=== PATIENT | female | born 1945 | race Caucasian/White ===

== ENCOUNTER 2016-11-12 16:45 | Emergency (ER) | payer MEDICARE, BC ==
[2016-11-12] MEDS ORDERED: fentaNYL 100 MCG/2 ML SDV IVPUSH ONE ×2 (16:50→16:56)
--- NOTE | 2016-11-12 16:56 | EDM.PDOC ---
ED HPI GENERAL MEDICAL PROBLEM - General Chief Complaint: Upper Extremity Injury/Pain Stated Complaint: [facility] Time Seen by Provider: 11/12/16 16:47 Source of Information: Reports: Patient, EMS History Limitations: Reports: No Limitations - History of Present Illness INITIAL COMMENTS - FREE TEXT/NARRATIVE: 71-year-old female presents to the ED with an acute injury to her left shoulder. She arrives per [facility] ambulance. She is camping in [place]. She reports she was coming out of her trailer which she believes has 2 or 3 steps down and she slipped on the bottom surface. She reached up to grab the door knob but wasn't sure that she actually grabbed it. She continued to fall. This resulted in severe sudden pain in her left shoulder. Had nearly 2 mg of Dilaudid en route to the hospital with minimal pain relief. No previous dislocation of her shoulders. She did not hit her head hard or lose consciousness. Denies any pain in her ribs. She has a history of hypertension and previous coronary disease requiring triple bypass and a pacemaker placement 2 years ago. Onset: Today Onset Date: 11/12/16 Onset Time: 16:00 Duration: Minutes: Location: Reports: Upper Extremity, Left (Left shoulder.) Quality: Reports: Ache, Throbbing, Other Severity: Severe (Severe pain with any movement of the left upper extremity) Improves with: Reports: None Worsens with: Reports: None Context: Reports: Other (Slipped and fell and likely had a whole of the doorknob or railing as she fell with her left hand.) Associated Symptoms: Denies: Confusion, Chest Pain, Cough, cough w sputum, Diaphoresis, Fever/Chills, Headaches, Loss of Appetite, Malaise, Nausea/Vomiting , Rash, Seizure, Shortness of Breath, Syncope, Weakness 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 (see below) Left Shoulder Pain Score (Numeric/FACES): 10 - Related Data Allergies Allergy/AdvReac Type Severity Reaction Status Date / Time No Known Allergies Allergy Verified 11/12/16 16:51 Home Meds: Home Meds Aspirin 81 mg PO DAILY 11/12/16 [History] Brimonidine Tartrate/Timolol [Combigan 0.2%-0.5% Eye Drops] 2 drop EYELF BID 09/24 [History] Brinzolamide [Azopt] 2 drop EYELF BID 11/12/16 [History] Latanoprost 2 drop EYELF DAILY 11/12/16 [History] Lisinopril 20 mg PO BID 11/12/16 [History] Lovastatin 40 mg PO DAILY 11/12/16 [History] [place]-3S/DHA/Epa/Fish Oil/D3 [Dry Eye [place] Benefits Liquid] 2 drop EYEBOTH BID 11/12/16 [History] Sodium Fluoride [Flura-Drops] 2 drop EYERT BID 11/12/16 [History] oxyCODONE HCl/Acetaminophen [Percocet 5-325 mg Tablet] 1 - 2 each PO Q4H PRN # 20 tablet 11/12/16 [Rx] Past Medical History Cardiovascular History: Reports: Bypass (Triple bypass surgery carried out 3 years ago.), High Cholesterol, Hypertension, [place], Pacemaker Musculoskeletal History: Reports: Osteoarthritis, Osteoporosis (Started Fosamax a few weeks ago.) Social & Family History - Living Situation & Occupation Occupation: Retired Review of Systems - Review of Systems Review Of Systems: See Below Constitutional: Reports: No Symptoms Eyes: Reports: Other Ears: Reports: No Symptoms (Has severe glaucoma and is on 4 different kinds of drops for this.) Nose: Reports: No Symptoms Mouth/Throat: Reports: No Symptoms Respiratory: Reports: Shortness of Breath, Cough (Occasional cough usually nonproductive). Denies: Wheezing, Pleuritic Chest Pain (On exertion.) Cardiovascular: Denies: Chest Pain, Edema, Irregular Heart Rate, Lightheadedness , Palpitations, Syncope, Other GI/Abdominal: Reports: No Symptoms Genitourinary: Reports: Other (Urinary frequency) Musculoskeletal: Reports: Joint Pain Skin: Reports: No Symptoms (Has osteoporosis and does have some hip and knee pain. Some pain in her lower back and neck at times) Neurological: Reports: No Symptoms Psychiatric: Reports: No Symptoms ED EXAM, GENERAL - Physical Exam Exam: See Below Exam Limited By: No Limitations General Appearance: Alert, Moderate Distress Eye Exam: Bilateral Eye: Normal Inspection Throat/Mouth: Normal Inspection, Normal Lips, Normal Teeth, Normal Oropharynx Head: Atraumatic, Normocephalic Neck: Normal Inspection, Supple, Non-Tender, Full Range of Motion. No: Lymphadenopathy (L), Lymphadenopathy (R) Respiratory/Chest: No Respiratory Distress, Lungs Clear, Normal Breath Sounds ( Air entry is mildly decreased in both bases.), No Accessory Muscle Use, Decreased Breath Sounds (Mildly decreased in both lower lung mayberry.) Cardiovascular: Normal Peripheral Pulses, Regular Rate, Rhythm, No Edema, No Gallop, No Murmur, No Rub, Other (Well-healed midline sternotomy incision) Peripheral Pulses: 1+: Posterior Tibial (L), Posterior Tibial (R), Dorsalis Pedis (L), Dorsalis Pedis (R) GI/Abdominal: Normal Bowel Sounds, Soft, Non-Tender, No Organomegaly, No Distention, Other (No previous abdominal surgery) Back Exam: Other (Mild kyphosis thoracic spine). No: CVA Tenderness (L), CVA Tenderness (R) Extremities: Normal Inspection, Normal Capillary Refill, Other ([place] try and attempt to move the shoulder causes severe pain. It is held in) Neurological: Alert ( abduction.), Oriented, CN II-XII Intact, Normal Cognition Psychiatric: Normal Affect, Other Skin Exam: Warm (In severe pain), Dry, Intact, Normal Color, No Rash ED TRAUMA EXTREMITY PROCEDURES - Joint Reduction Site: Shoulder (L) Sedation: Conscious Cedation Local Anesthesia - Bupivicaine (Marcaine): Other (Utilize a total of 3 mg of Versed and 100 g of fentanyl IV.) Pre-Procedure NV Status: Normal Post-Procedure NV Status: Normal Technique: Traction/Counter Traction Number of Attempts: 1 Post-Reduction Imaging: Completely Reduced, No Fracture Seen Joint Reduction Complications: No Joint Reduction Complication Description: Patient did develop apnea for a period of time and required an oral airway and Ambu bag ventilation for a period of 3 minutes to restore her O2 sats to normal. Chest drifted as low as 55 %. After this she required a mask at 12 L/m and after 3 or 4 minutes she drifted down to as low as 72%. She was therefore given Romazicon 0.2 mg IV bolus. This improved her O2 sats immediately and she has remained at 100% O2 sats. Course - Vital Signs Last Recorded V/S: Last Vital Signs Temp 35.5 C 11/12/16 16:49 Pulse 69 11/12/16 20:06 Resp 18 11/12/16 20:06 BP 122/81 11/12/16 20:06 Pulse Ox 99 11/12/16 20:06 - Orders/Labs/Meds Meds: Medications Discontinued Medications Generic Name Dose Route Start Last Admin Trade Name Chela PRN Reason Stop Dose Admin Fentanyl 50 mcg 11/12/16 16:50 11/12/16 17:02 Sublimaze IVPUSH 11/12/16 16:51 50 mcg ONETIME ONE Administration Fentanyl 100 mcg 11/12/16 16:56 11/12/16 19:24 Sublimaze IVPUSH 11/12/16 16:57 Not Given ONETIME ONE Fentanyl Confirm 11/12/16 17:01 11/12/16 17:56 Sublimaze Administered 11/12/16 17:02 Not Given Dose 100 mcg .ROUTE .STK-MED ONE Flumazenil 0.2 mg 11/12/16 17:37 11/12/16 17:43 Romazicon IVPUSH 11/12/16 17:38 0.2 mg ONETIME ONE Administration Flumazenil Confirm 11/12/16 17:41 11/12/16 17:57 Romazicon Administered 11/12/16 17:42 Not Given Dose 0.5 mg .ROUTE .STK-MED ONE Metoclopramide HCl 7.5 mg 11/12/16 17:03 11/12/16 19:25 Reglan IVPUSH 11/12/16 17:04 Not Given ONETIME ONE Midazolam HCl 6 mg 11/12/16 16:57 11/12/16 17:25 Versed 1 Mg/Ml IVPUSH 11/12/16 16:58 1 mg ONETIME ONE Administration Midazolam HCl Confirm 11/12/16 17:00 11/12/16 17:57 Versed 1 Mg/Ml Administered 11/12/16 17:01 Not Given Dose 6 mg .ROUTE .STK-MED ONE - Radiology Interpretation Free Text/Narrative:: 71-year-old female presents the ED per [facility] ambulance after suffering a fall outside her camper in [place]. She states she slipped while going down the stairs reached out to grab the doorknob and is unsure if she actually grabbed a hold of it or not. At any rate she landed hard on her left posterior shoulder suffering severe pain in the left shoulder. Clinic it appears that she has a anterior dislocation of her left shoulder. She has had minimal G today toast for breakfast and a sandwich at 2:00. A granola bar about an hour and a half ago. Plan will be to go ahead with constipation to reduce the left anterior shoulder with the use of fentanyl and Versed. We'll give her Reglan 7.5 mg IV now with fentanyl 5050 g IV now. - Re-Assessments/Exams Free Text/Narrative Re-Assessment/Exam: 11/12/16 17:29 the x-ray of her left shoulder confirmed an anterior dislocation without any evidence of fracture. She therefore underwent conscious sedation with a total of 3 mg of Versed and 100 g of fentanyl. The shoulder reduced easily with countertraction traction maneuver. Subsequent to be reduction she did develop apnea. Acquired assisted bag mask ventilation and an oral airway for 3 minutes. After this she developed spontaneous breathing and was resuscitated with a nonrebreather mask at 12 L/m. Blood pressure remains 105/ 52. A postreduction x-ray will be obtained at a suitable time. 11/12/16 17:40: Patient did develop apnea or upper airway obstruction likely from her tongue. She required an oral airway insertion and bag mask ventilation for a period of 3 minutes by me with 100% oxygen. This returned her O2 sats to 100% she was then taking good normal spontaneous respirations. She was switched over to a nonrebreather mask at 12 L/m. However approximate 5-6 minutes later she drifted down again into the 78th percentile. She was therefore given Romazicon 0.2 mg IV with return of spontaneous breathing and O2 sats to 100%. 11/12/16 18:17 she is back to her normal state of health. She is alert oriented and able to talk and converse normally. She has no further numbness or tingling in her left hand. She has normal sensation in the distribution of the axillary nerve and good abduction and abduction of the fingers of her left hand. Postreduction x-ray reviewed reveals return of the humeral head to its normal anatomical position with a fairly normal appearance of the acromial humeral gap. are advised that she is at risk of rotator cuff tear. They will follow-up with her personal physician once they get back home in approximately 2 weeks' time. She is to remain in sling and swath for the next 10 days. Will be discharged on Percocet 5/325 milligrams tablets 1 tablet every 4 hours as needed with pain relief for pain relief. Departure - Departure Time of Disposition: 18:18 Disposition: Home, Self-Care 01 Condition: Fair Clinical Impression: Anterior dislocation of left shoulder Qualifiers: Encounter type: initial encounter Qualified Code(s): S43.015A - Anterior dislocation of left humerus, initial encounter - Discharge Information Prescriptions: oxyCODONE HCl/Acetaminophen [Percocet 5-325 mg Tablet] 1 - 2 each PO Q4H PRN # 20 tablet PRN Reason: pain relief. Instructions: Shoulder Dislocation Referrals: PCP,Not In Area [Primary Care Provider] - Forms: ED Department Discharge Additional Instructions: Evaluation the emergency room today in regards to acute injury to the left shoulder due to a slip and fall while coming out of her camper this afternoon. Arm was reaching above her head for the doorknob as you're slipping and falling and you suffered an anterior dislocation of your left shoulder without any fracture. X-rays confirmed anterior dislocation without fracture. You therefore received conscious sedation by way of fentanyl 2 g IV 2 doses and a total of 3 mg of Versed to provide satisfactory sedation to allow return of the shoulder to the normal position. Post reduction films reveal return of the shoulder to its usual normal anatomical position. You need to stay in the sling and swath for the next 10 days to allow the shoulder joint capsule to heal. After 10 days you may take it out of the sling and start to move around slowly with slow plans but abduction which means moving the shoulder or elbow greater than your height of your shoulder. Follow-up with her personal care physician in 2 weeks time and tentatively made arrangements 0 therapy to strengthen the shoulder as you may well of suffered some rotator cuff tears related to the violence of the dislocation. In the meantime may take Aleve 2 tablets every 8 hours or Motrin 600 mg every 6 hours for pain relief. May take Percocet 5/3/25 milligrams tablets 1 tablet every 4-6 hours with the Aleve or Motrin as needed for pain relief the next few days. Ice pack to the area for one half hour out of every 4 hours today and tomorrow may help reduce swelling and pain.
[2016-11-12] MEDS ORDERED: Midazolam 1 MG/ML 2 ML SDV ONE (17:00)
[2016-11-12] MEDS ORDERED: fentaNYL 100 MCG/2 ML SDV ONE (17:01)
[2016-11-12] MEDS ORDERED: Metoclopramide 10 MG/2 ML SDV IVPUSH ONE (17:03)
[2016-11-12] MEDS: Midazolam 1 MG/ML 5 ML SDV IVPUSH ONE ×2 (17:20→17:25)
[2016-11-12] MEDS ORDERED: Flumazenil 0.1 MG/ML 5 ML MDV IVPUSH ONE (17:37)
[2016-11-12] MEDS ORDERED: Flumazenil 0.1 MG/ML 5 ML MDV ONE (17:41)
[2016-11-12 20:08] VITALS: BP 122/81
--- NOTE | 2016-11-13 08:43 | CR ---
Left shoulder: Portable view of the left shoulder was obtained in AP projection. Comparison: Previous study performed earlier on the same day (4:49 PM). Previous dislocation has been reduced. No fracture or other bony abnormality is seen. Impression: 1. Reduction of previous dislocation. Diagnostic code #1
--- NOTE | 2016-11-13 08:43 | CR ---
Left shoulder: Two views of the left shoulder were obtained. Dislocation is seen anteriorly. No discrete fracture or other abnormality is seen. Impression: 1. Anterior left shoulder dislocation. Diagnostic code #3
== END 2016-11-12 19:30 | disposition home or self-care (01) ==
LOC: JD.ED 16:45
DX: S43.015A Anterior dislocation of left humerus, initial encounter (principal); I10 Essential (primary) hypertension; I25.2 Old myocardial infarction; E78.00 Pure hypercholesterolemia, unspecified; Z95.1 Presence of aortocoronary bypass graft; M19.90 Unspecified osteoarthritis, unspecified site; M81.0 Age-related osteoporosis without current pathological fracture; Z95.0 Presence of cardiac pacemaker; Z79.82 Long term (current) use of aspirin; Z79.899 Other long term (current) drug therapy; W10.8XXA Fall (on) (from) other stairs and steps, initial encounter
CPT/HCPCS: 23650; 73020; 73030; 96374; 96375; 99152; 99153; 99284; J2250; J3010; 31500; J3490